=== PATIENT | female | born 1990 | race Asian ===

== ENCOUNTER 2021-04-01 19:01 | Emergency (ER) | payer MEDICAID ==
[~2021-04-01] VITALS: Ht 152.4 cm; Wt 89.0 kg
[~2021-04-01 19:01] MED LIST: AMPH30TA3 PO; SERT25TA PO
--- NOTE | 2021-04-01 20:06 | NUR ---
patient reports flying to [place] from [place] where she was hospitalized for vaginal bleeding and vomiting and later found naked in a ditch and hospitalized again
[2021-04-01] MEDS ORDERED: LIDOcaine 1% W/epiNEPHrine 1:200,000 10ml vial IJ ONE (20:20)
--- NOTE | 2021-04-01 20:33 | NUR ---
dr lyon in room and lanced left armpit abcess and left labia abcess: white prurlent moderate from left armpit and copious white material from left labia: patient cleaned left armpit and labial area with chorhexidine wipes
--- NOTE | 2021-04-01 20:52 | NUR ---
PATIENT SEEN AND TREATED FOR RASH AND ABCESS. KD VERBALIZED DISCHARGE PLAN. ASHLEYN WILL USE CLARITIN DAILYWITH BENADRYL NEEDED FOR HIVES, RASH, AND ITCHING. PATIENT WILL CLEAN AND KEEP DRY AND CLEAN LEFT ARMPIT AND LEFT LABIA. PATIENT VERBALIZED THAT SHE WILL USE A PAD AND PROVIDED A PAD TO WEAR HOME. PATIENT WILL FOLLOW UP WITH THE [facility]AT[facility]NA THOMAS. PATIENT AMBUALTED OUT OF ER WNL
[2021-04-01 21:12] VITALS: BP 125/69
== END 2021-04-01 20:57 | disposition home or self-care (01) ==
LOC: ER 19:02
DX: L02.412 Cutaneous abscess of left axilla (principal); N76.4 Abscess of vulva; R21 Rash and other nonspecific skin eruption; R50.9 Fever, unspecified; R05 Cough; R11.2 Nausea with vomiting, unspecified; R19.7 Diarrhea, unspecified; R09.89 Other specified symptoms and signs involving the circulatory and respiratory systems; F41.9 Anxiety disorder, unspecified; F32.9 Major depressive disorder, single episode, unspecified; F17.200 Nicotine dependence, unspecified, uncomplicated; Z87.01 Personal history of pneumonia (recurrent); Z79.899 Other long term (current) drug therapy
CPT/HCPCS: 10060; 10061; 56405; 99284

== ENCOUNTER 2021-06-25 14:03 | Emergency (ER) | payer MEDICAID ==
[~2021-06-25] VITALS: Ht 152.4 cm; Wt 214.0 kg
[2021-06-25 14:20] VITALS: BP 127/80
[2021-06-25] MEDS ORDERED: acetaminophen 325mg tablet PO ONE (15:20)
[2021-06-25] MEDS ORDERED: ONDA4TAB6 PO (15:53)
[2021-06-25] MEDS ORDERED: ACET-1025 PO (15:53)
[2021-06-25] MEDS ORDERED: ALBU8HFA PO (15:53)
[2021-06-25] MEDS ORDERED: BENZ-16 PO (15:53)
== END 2021-06-25 18:43 | disposition home or self-care (01) ==
LOC: ER 14:03
DX: U07.1 COVID-19 (principal); Z87.01 Personal history of pneumonia (recurrent); Z79.899 Other long term (current) drug therapy
CPT/HCPCS: 71045; 99283

== ENCOUNTER 2021-06-30 12:06 | Emergency (ER) | payer MEDICAID ==
[~2021-06-30] VITALS: Ht 152.4 cm; Wt 97.3 kg
[~2021-06-30 12:06] MED LIST changes: +ACET-1025 PO; +ALBU8HFA PO; +BENZ-16 PO; +ONDA4TAB6 PO
[2021-06-30 13:01] VITALS: BP 127/92
--- NOTE | 2021-06-30 15:03 | NUR ---
TC TO [facility] AT [facility]
== END 2021-06-30 15:04 | disposition home or self-care (01) ==
LOC: ER 12:07
DX: U07.1 COVID-19 (principal); R05 Cough; R19.7 Diarrhea, unspecified; R11.0 Nausea; F41.9 Anxiety disorder, unspecified; F32.9 Major depressive disorder, single episode, unspecified; Z87.01 Personal history of pneumonia (recurrent); Z79.899 Other long term (current) drug therapy
CPT/HCPCS: 71045; 99283

== ENCOUNTER 2021-11-22 08:40 | Emergency (ER) | payer MEDICAID ==
[~2021-11-22] VITALS: Ht 157.5 cm; Wt 111.0 kg
[~2021-11-22 08:40] MED LIST changes: -ACET-1025 PO; -ALBU8HFA PO; -BENZ-16 PO
[2021-11-22 08:45] VITALS: BP 121/80
== END 2021-11-22 11:34 | disposition home or self-care (01) ==
LOC: ER 08:41
DX: J06.9 Acute upper respiratory infection, unspecified (principal); Z20.822 Contact with and (suspected) exposure to COVID-19; R05.9 Cough, unspecified; J02.9 Acute pharyngitis, unspecified; R06.02 Shortness of breath; F41.9 Anxiety disorder, unspecified; F32.9 Major depressive disorder, single episode, unspecified; F17.200 Nicotine dependence, unspecified, uncomplicated; Z87.01 Personal history of pneumonia (recurrent); Z79.899 Other long term (current) drug therapy
CPT/HCPCS: 71045; 87635; 99284; C9803

== ENCOUNTER 2022-02-27 08:18 | Emergency (ER) | payer MEDICAID ==
[~2022-02-27] VITALS: Ht 152.4 cm; Wt 113.6 kg
[2022-02-27 08:33] VITALS: BP 130/82
[2022-02-27] MEDS ORDERED: LIDOcaine 1% 30ml preserv. free vial IJ STA (09:37)
--- NOTE | 2022-02-27 09:45 | NUR ---
TANVI Oliver at beside to give a digital block of toe.
--- NOTE | 2022-02-27 10:05 | NUR ---
Open wound on distal 2nd toe of L foot was irragated with 400ml of NS.
[2022-02-27] MEDS ORDERED: ibuprofen tablet 400 MG TABLET PO ONE (10:10)
[2022-02-27] MEDS ORDERED: acetaminophen 325mg tablet PO ONE (10:10)
[2022-02-27] MEDS ORDERED: CEPH500C2 PO (10:17)
[2022-02-27] MEDS ORDERED: LIDOcaine 1% W/epiNEPHrine 1:100,000 20ml vial SQ ONE (10:25)
[2022-02-27] MEDS ORDERED: LIDOcaine 1% W/epiNEPHrine 1:100,000 20ml vial ONE (10:29)
== END 2022-02-27 10:46 | disposition home or self-care (01) ==
LOC: ER 08:18
DX: S90.415A Abrasion, left lesser toe(s), initial encounter (principal); M79.675 Pain in left toe(s); Z87.01 Personal history of pneumonia (recurrent); Z79.2 Long term (current) use of antibiotics; Z79.899 Other long term (current) drug therapy; W20.8XXA Other cause of strike by thrown, projected or falling object, initial encounter; Y93.89 Activity, other specified; Y92.89 Other specified places as the place of occurrence of the external cause; Y99.8 Other external cause status
CPT/HCPCS: 64450; 73630; 99284; J3490; 99283

== ENCOUNTER 2022-05-26 08:51 | Emergency (ER) | payer MEDICAID ==
[~2022-05-26] VITALS: Ht 152.4 cm; Wt 110.5 kg
[2022-05-26] MEDS ORDERED: ondansetron/PF 4mg/2ml inj IV ONE (10:35)
[2022-05-26] MEDS ORDERED: normal saline 1000ml 1,000 ML IV ONE (10:35)
[2022-05-26 11:13] LABS: BASOPHILS % (AUTO) 0.5 % (0-1); EOSINOPHILS # (AUTO) 0.1 X10'3 (0-0.9); EOSINOPHILS % (AUTO) 1.6 % (0-6); HEMATOCRIT 35.7 % (35.0-45.0); HEMOGLOBIN 11.7 g/dl (12.0-16.0); LYMPHOCYTES # (AUTO) 2.3 X10'3 (1.1-4.8); LYMPHOCYTES % (AUTO) 25.4 % (21-51); MEAN CORPUSCULAR HEMOGLOBIN 30.5 PG (27.0-31.0); MEAN CORPUSCULAR HGB CONC 32.7 g/dL (33.0-36.5); MEAN CORPUSCULAR VOLUME 93.4 FL (78-98); MEAN PLATELET VOLUME 8.4 FL (7.4-10.4); MONOCYTES # (AUTO) 0.6 X10'3 (0-0.9); MONOCYTES % (AUTO) 7.1 % (2-12); NEUTROPHILS # (AUTO) 5.9 X10'3 (1.8-7.7); NEUTROPHILS % (AUTO) 65.4 % (42-75); PLATELET COUNT 341 X10'3 (140-440); RED BLOOD COUNT 3.82 X10'6 (4.20-5.60); RED CELL DISTRIBUTION WIDTH 13.4 % (11.5-14.5)
[2022-05-26 11:17] LABS: ALANINE AMINOTRANSFERASE 16 U/L (12-78); ALBUMIN 3.6 G/DL (3.4-5.0); ALBUMIN/GLOBULIN RATIO 0.9 (1.1-1.5); ALKALINE PHOSPHATASE 48 IU/L (46-116); ANION GAP 10 (8-16); ASPARTATE AMINO TRANSFERASE 12 U/L (10-37); BILIRUBIN,TOTAL 0.4 MG/DL (0.1-1.0); BLOOD UREA NITROGEN 8 MG/DL (7-18); BUN/CREATININE RATIO 13.6 (6.6-38.0); CALCIUM 8.7 MG/DL (8.5-10.1); CHLORIDE 106 MMOL/L (99-107); CREATININE 0.59 MG/DL (0.40-0.90); GLUCOSE 87 MG/DL (70-104); MAGNESIUM 1.8 MG/DL (1.5-2.4); SODIUM 139 MMOL/L (135-145); TOTAL CARBON DIOXIDE 22.9 MMOL/L (24-32); TOTAL PROTEIN 7.8 G/DL (6.4-8.2); eGFR > 90 ML/MIN
[2022-05-26] MEDS ORDERED: ketorolac trometh. 30mg/ml inj. IV ONE (12:55)
[2022-05-26] MEDS ORDERED: diphenhydrAMINE 50 mg/ml inj IV ONE (12:55)
[2022-05-26] MEDS ORDERED: diphenhydrAMINE 50 mg/ml inj ONE (13:07)
[2022-05-26] MEDS ORDERED: ONDA4TAB12 PO (14:15)
[2022-05-26 14:19] LABS: CLARITY,URINE SLIGHTLY CLOUDY (Clear); COLOR,URINE RED (Yellow)
[2022-05-26 14:22] LABS: UA COLLECTION TYPE CLN CATCH MIDSTREAM
[2022-05-26 14:27] LABS: URINE HCG NEGATIVE (NEG)
[2022-05-26 14:34] LABS: SQUAMOUS EPITHELIAL CELL,UR MODERATE /LPF (FEW)
[2022-05-26 14:37] LABS: RBC,URINE TNTC /HPF (0-2); WBC,URINE 30-50 /HPF (0-4)
[2022-05-26 14:38] LABS: BACTERIA,URINE 1+ /HPF (Neg)
[2022-05-26] MEDS ORDERED: CEPH-585 PO (15:07)
[2022-05-26] MEDS ORDERED: cephalexin 250mg capsule PO ONE (15:10)
[2022-05-26 15:17] VITALS: BP 128/65
== END 2022-05-26 15:18 | disposition home or self-care (01) ==
LOC: ER 08:51
DX: K52.9 Noninfective gastroenteritis and colitis, unspecified (principal); Z20.822 Contact with and (suspected) exposure to COVID-19; N39.0 Urinary tract infection, site not specified; R51.9 Headache, unspecified; R11.2 Nausea with vomiting, unspecified; Z87.01 Personal history of pneumonia (recurrent); Z79.2 Long term (current) use of antibiotics; Z79.899 Other long term (current) drug therapy
CPT/HCPCS: 36415; 80053; 81001; 81025; 83735; 85025; 87088; 87635; 96361; 96374; 96375; 99284; C9803; J1200; J1885; J2405; J7030

== ENCOUNTER 2023-07-08 11:09 | Emergency (ER) | payer MEDICAID ==
[~2023-07-08] VITALS: Ht 167.6 cm; Wt 117.6 kg
[~2023-07-08 11:09] MED LIST changes: +LISD20CA PO; +METF-436 PO; +ONDA4TAB12 PO
[2023-07-08 11:11] VITALS: BP 135/91; PULSE 97; O2SAT 97
[2023-07-08] MEDS ORDERED: ketorolac trometh inj. 60 MG/2 ML VIAL IM ONE (13:05)
[2023-07-08] MEDS ORDERED: orphenadrine citrate 60mg/2ml inj. IM ONE (13:05)
[2023-07-08] MEDS ORDERED: PRED20TA PO (13:09)
[2023-07-08] MEDS ORDERED: CYCL-1 PO (13:09)
[2023-07-08] MEDS ORDERED: IBUP-1984 PO (13:09)
[2023-07-08 13:13] VITALS: RESP 15
[2023-07-08 13:33] VITALS: TEMP 98.3
--- NOTE | 2023-07-08 13:36 | NUR ---
LUMBAR BRACE NOT AVAILABLE IN PT SIZE TOLD BY JOY GASTELUM ,NOTIFIED THE PA AND ALSO THE PT ,OKAY TO D/C WITHOUT BRACE.
== END 2023-07-08 13:37 | disposition home or self-care (01) ==
LOC: ER 11:09
DX: S39.012A Strain of muscle, fascia and tendon of lower back, initial encounter (principal); F41.9 Anxiety disorder, unspecified; F32.A Depression, unspecified; Z79.899 Other long term (current) drug therapy; X50.0XXA Overexertion from strenuous movement or load, initial encounter; Y93.89 Activity, other specified; Y92.89 Other specified places as the place of occurrence of the external cause; Y99.8 Other external cause status
CPT/HCPCS: 96372; 99284; J1885; J2360

== ENCOUNTER 2024-01-08 07:00 | Emergency (ER) | payer MEDICAID ==
[~2024-01-08] VITALS: Ht 152.4 cm; Wt 109.6 kg
[~2024-01-08 07:00] MED LIST changes: +CYCL-1 PO
[2024-01-08] MEDS: albuterol 2.5 MG/3 ML nebule NEB ONE (09:10)
[2024-01-08 09:11] VITALS: PULSE 87; RESP 22; O2SAT 98
[2024-01-08 09:22] VITALS: PULSE 91; RESP 24; O2SAT 95
[2024-01-08] MEDS: HYDROcodone/acetaminophen 5mg/325mg tablet PO ONE (09:30)
[2024-01-08] MEDS: azithromycin 250mg tablet PO ONE (09:37)
[2024-01-08] MEDS: ketorolac trometh. 30mg/ml inj. IV ONE (09:38)
[2024-01-08] MEDS: normal saline 1000ML IV soln IVB ONE (09:39)
[2024-01-08] MEDS: methylPREDNISolone sod succ 125mg/2ml vial IV ONE (09:39)
[2024-01-08] MEDS: CefTRIAXone 2gm/D5W 50ml BAG 50 ML IV ONE (09:44)
[2024-01-08 09:52] LABS: BASOPHILS % (AUTO) 0.7 % (0-1); EOSINOPHILS # (AUTO) 0.1 X10'3 (0-0.9); EOSINOPHILS % (AUTO) 1.6 % (0-6); HEMATOCRIT 35.6 % (35.0-45.0); HEMOGLOBIN 11.7 g/dl (12.0-16.0); LYMPHOCYTES # (AUTO) 1.8 X10'3 (1.1-4.8); LYMPHOCYTES % (AUTO) 24.2 % (21-51); MEAN CORPUSCULAR HEMOGLOBIN 29.8 PG (27.0-31.0); MEAN CORPUSCULAR HGB CONC 32.9 g/dL (33.0-36.5); MEAN CORPUSCULAR VOLUME 90.3 FL (78-98); MEAN PLATELET VOLUME 8.7 FL (7.4-10.4); MONOCYTES # (AUTO) 0.6 X10'3 (0-0.9); NEUTROPHILS # (AUTO) 4.8 X10'3 (1.8-7.7); NEUTROPHILS % (AUTO) 65.5 % (42-75); PLATELET COUNT 351 X10'3 (140-440); RED BLOOD COUNT 3.94 X10'6 (4.20-5.60); RED CELL DISTRIBUTION WIDTH 13.9 % (11.5-14.5); WHITE BLOOD COUNT 7.3 X10'3 (4.5-11.0)
[2024-01-08 10:16] LABS: ALBUMIN 3.5 G/DL (3.4-5.0); ANION GAP 12 (8-16); BLOOD UREA NITROGEN 7 MG/DL (7-18); BUN/CREATININE RATIO 11.7 (10.0-20.0); CALCIUM 8.9 MG/DL (8.5-10.1); CHLORIDE 104 MMOL/L (99-107); GLUCOSE 83 MG/DL (70-104); PRO BRAIN NATRIURETIC PEPTIDE < 30 PG/ML (0-125); SODIUM 138 MMOL/L (135-145); TOTAL CARBON DIOXIDE 22.4 MMOL/L (24-32); eCRCL 98 ML/MIN; eGFR > 90 ML/MIN
[2024-01-08 10:19] LABS: D-DIMER 0.56 MG/L FEU (0-0.50)
[2024-01-08] MEDS: LORazepam 2 mg/ml vial IV ONE (10:27)
[2024-01-08 13:39] LABS: HCG SERUM QL NEGATIVE
[2024-01-08] MEDS ORDERED: IBUP-1985 PO (15:00)
[2024-01-08] MEDS ORDERED: PRED20TA PO (15:00)
[2024-01-08] MEDS ORDERED: ALBU8HFA INH (15:00)
[2024-01-08] MEDS ORDERED: AMOX-580 PO (15:00)
[2024-01-08 15:10] VITALS: BP 130/78; PULSE 89; RESP 18; TEMP 98.5; O2SAT 99
== END 2024-01-08 15:12 | disposition home or self-care (01) ==
LOC: ER 07:00
DX: S29.011A Strain of muscle and tendon of front wall of thorax, initial encounter (principal); R91.1 Solitary pulmonary nodule; R05.9 Cough, unspecified; Z79.899 Other long term (current) drug therapy; X58.XXXA Exposure to other specified factors, initial encounter; Y93.89 Activity, other specified; Y92.89 Other specified places as the place of occurrence of the external cause; Y99.8 Other external cause status
CPT/HCPCS: 36415; 71045; 71275; 80048; 83605; 83880; 84484; 84703; 85025; 85379; 87040; 93005; 94640; 96365; 96375; 99285; J0696; J1885; J2060; J2930; J7030; 94760

== ENCOUNTER 2024-08-09 09:32 | Emergency (ER) | payer MEDICAID ==
[~2024-08-09] VITALS: Ht 152.4 cm; Wt 92.6 kg
[~2024-08-09 09:32] MED LIST changes: +CLIN-97 PO; +IBUP-1985 PO; +IBUP-862 PO; +ONDA-243 PO; -ONDA4TAB12 PO
[2024-08-09 09:43] VITALS: TEMP 97.1
[2024-08-09] MEDS ORDERED: ondansetron/PF 4mg/2ml inj IM ONE (10:30)
[2024-08-09 10:54] LABS: BILIRUBIN,URINE NEGATIVE (Neg); CLARITY,URINE CLEAR (Clear); COLOR,URINE YELLOW (Yellow); GLUCOSE, URINE NEGATIVE (Neg); KETONES,URINE 40 mg/dl (Neg); LEUKOCYTE ESTERASE ,URINE NEGATIVE (Neg); NITRITES, URINE NEGATIVE (Neg); OCCULT BLOOD,URINE SMALL (Neg); PROTEIN,URINE NEGATIVE (Neg); UROBILINOGEN,URINE 0.2 E.U/dL (0.2-1.0)
[2024-08-09 10:57] LABS: BASOPHILS % (AUTO) 0.4 % (0-1); EOSINOPHILS % (AUTO) 0.7 % (0-6); HEMATOCRIT 36.5 % (35.0-45.0); HEMOGLOBIN 12.1 g/dl (12.0-16.0); LYMPHOCYTES # (AUTO) 1.9 X10'3 (1.1-4.8); LYMPHOCYTES % (AUTO) 29.6 % (21-51); MEAN CORPUSCULAR HEMOGLOBIN 32.1 PG (27.0-31.0); MEAN CORPUSCULAR HGB CONC 33.3 g/dL (33.0-36.5); MEAN CORPUSCULAR VOLUME 96.5 FL (78-98); MEAN PLATELET VOLUME 9.1 FL (7.4-10.4); MONOCYTES # (AUTO) 0.5 X10'3 (0-0.9); MONOCYTES % (AUTO) 7.5 % (2-12); NEUTROPHILS % (AUTO) 61.8 % (42-75); PLATELET COUNT 312 X10'3 (140-440); RED BLOOD COUNT 3.78 X10'6 (4.20-5.60); RED CELL DISTRIBUTION WIDTH 13.5 % (11.5-14.5); WHITE BLOOD COUNT 6.5 X10'3 (4.5-11.0)
[2024-08-09 10:58] LABS: UA COLLECTION TYPE CLN CATCH MIDSTREAM
[2024-08-09 10:59] LABS: BACTERIA,URINE FEW /HPF (Neg); RBC,URINE 0-2 /HPF (0-2); SQUAMOUS EPITHELIAL CELL,UR MODERATE /LPF (FEW); WBC,URINE 0-4 /HPF (0-4)
[2024-08-09 11:19] LABS: ALANINE AMINOTRANSFERASE 20 U/L (12-78); ALBUMIN 3.9 G/DL (3.4-5.0); ALBUMIN/GLOBULIN RATIO 0.9 (1.1-1.5); ALKALINE PHOSPHATASE 40 IU/L (46-116); ANION GAP 12 (8-16); ASPARTATE AMINO TRANSFERASE 20 U/L (10-37); BILIRUBIN,TOTAL 0.4 MG/DL (0.1-1.0); BLOOD UREA NITROGEN 5 MG/DL (7-18); BUN/CREATININE RATIO 7.5 (10.0-20.0); CALCIUM 9.1 MG/DL (8.5-10.1); CHLORIDE 101 MMOL/L (99-107); CREATININE 0.67 MG/DL (0.40-0.90); GLUCOSE 79 MG/DL (70-104); POTASSIUM 3.1 MMOL/L (3.5-5.1); SODIUM 135 MMOL/L (135-145); TOTAL CARBON DIOXIDE 22.3 MMOL/L (24-32); TOTAL PROTEIN 8.1 G/DL (6.4-8.2); eCRCL 87 ML/MIN; eGFR > 90 ML/MIN
[2024-08-09] MEDS: normal saline 1000ml 1,000 ML IV ONE (11:19)
[2024-08-09] MEDS: ondansetron/PF 4mg/2ml inj IV ONE (11:22)
[2024-08-09 11:58] LABS: BETA HCG,QUANTITATIVE 12288 mIU/ml
[2024-08-09 12:36] VITALS: BP 136/87; PULSE 86; RESP 15; O2SAT 100
== END 2024-08-09 12:38 | disposition home or self-care (01) ==
LOC: ER 09:32
DX: O21.0 Mild hyperemesis gravidarum (principal); F41.9 Anxiety disorder, unspecified; F32.A Depression, unspecified; F17.210 Nicotine dependence, cigarettes, uncomplicated; Z3A.01 Less than 8 weeks gestation of pregnancy; Z79.899 Other long term (current) drug therapy; Z79.2 Long term (current) use of antibiotics
CPT/HCPCS: 36415; 80053; 81001; 84702; 85025; 96361; 96374; 99283; J2405; J7030

== ENCOUNTER 2024-08-12 09:50 | Emergency (ER) | payer MEDICAID ==
[~2024-08-12] VITALS: Ht 152.4 cm; Wt 92.9 kg
[2024-08-12 09:55] VITALS: BP 135/81; PULSE 81; RESP 16; TEMP 97.5; O2SAT 100
== END 2024-08-12 13:03 | disposition home or self-care (01) ==
LOC: ER 09:50
DX: O26.851 Spotting complicating pregnancy, first trimester (principal); F41.9 Anxiety disorder, unspecified; F32.A Depression, unspecified; Z79.2 Long term (current) use of antibiotics; Z79.1 Long term (current) use of non-steroidal anti-inflammatories (NSAID); Z79.84 Long term (current) use of oral hypoglycemic drugs; Z79.899 Other long term (current) drug therapy; Z3A.01 Less than 8 weeks gestation of pregnancy
CPT/HCPCS: 36415; 84702; 99283

== ENCOUNTER 2025-07-28 19:04 | Emergency (ER) | payer MEDICAID ==
[~2025-07-28] VITALS: Ht 152.4 cm; Wt 122.6 kg
[~2025-07-28 19:04] MED LIST changes: +CLIN-224 PO; -CLIN-97 PO; -IBUP-1985 PO; +IBUP600T52 PO
[2025-07-28 19:07] VITALS: BP 150/98
[2025-07-28 19:59] LABS: INFLUENZA TYPE A ANTIGEN RAPID NEGATIVE (Negative); INFLUENZA TYPE B ANTIGEN RAPID NEGATIVE (Negative)
--- NOTE | 2025-07-28 20:06 | RADIOLOGY REPORT ---
CHEST RADIOGRAPH Indication: cough Technique: Single frontal view of the chest was obtained Comparison: DI CHEST,SINGLE VIEW on DOS: 01/08/24, CHEST,SINGLE VIEW on DOS: 11/22/21, CHEST,SINGLE VIEW on DOS: 06/30/21 FINDINGS: Lines and Tubes: None Lungs: No focal consolidation. Pleura: No effusion. No pneumothorax. Cardiomediastinal contours: Unremarkable Bones: No acute osseous abnormality. IMPRESSION: No acute cardiopulmonary disease.
--- NOTE | 2025-07-28 20:45 | Physician Documentation ---
History of Present Illness ~ Chief Complaint: Cold, cough & congestion Stated Complaint: COUGH Time Seen by MD: 19:28 Primary Medical Doctor: N/A Mode of Arrival: POV HPI 35-year-old female had dry cough sinus congestion the last three days. Did not states she also has nausea and diarrhea Day of Onset: Jul 28, 2025 Medication Reconciliation Allergies: Coded Allergies: No Known Allergies (Unverified , 07/28/25) Scheduled Clindamycin HCL* (Clindamycin HCL*), 1 CAP PO Q6H Cyclobenzaprine* (Cyclobenzaprine*), 1 TAB PO Q8H Dextroamphetamine/Amphetamine (Adderall 30 mg Tablet), 1 TAB PO BID Ibuprofen (Ibuprofen), 1 TAB PO Q8H Ibuprofen (Ibu), 1 TAB PO Q6H Lisdexamfetamine Dimesylate (Vyvanse), 1 CAP PO QAM Metformin Hcl (Metformin Hcl), 1 TAB PO Q12H Ondansetron Hcl (Zofran), 1 TAB PO Q6H Sertraline Hcl* (Zoloft*), 1 TABLET PO DAILY Scheduled PRN ONDANSETRON ODT 4mg tablet (Ondansetron Odt), 1 TABLET PO Q6H PRN for nausea/vomiting Past Medical History Past Medical History: *ENT*, Pneumonia, *PSYCH*, Anxiety, Depression Past Surgical History: noncontributory Alcohol Use: None Drug Use: none Lives In: Home Review of Systems All Other Systems at this time: Reviewed and Negative ROS As stated above in the HPI, otherwise all systems are reviewed and negative. Physical Exam Vital Signs: Temperature: 98.1, Source: Oral, Heart Rate: 88, Respiratory Rate: 18, BP: 150/98, Pulse Oximetry: 99, Weight: 122.600 Oxygen Flow Rate: 0 Physical Exam General: Alert, no apparent distress. HEENT: PERRL, EOMI, no injection, moist mucous membranes. Neck: Full range of motion. Respiratory: Lungs clear, no respiratory distress. Chest: No accessory muscle use. Cardiovascular: Regular rate and rhythm, no murmurs. Gastrointestinal: Soft, nontender, nondistended. Bowels sounds present. Extremities: Normal range of motion, no deformity. Neurologic: Oriented x4. Psychiatric: Normal mood and affect. Skin: Normal color, warm and dry. No edema, no ecchymosis. Progress Results/Orders Results/Orders Orders - JAX MARTINEZ NP Chest,Single View (07/28/25 19:30) Completed Orders - JAX MARTINEZ NP Chest,Single View (07/28/25 19:30) Vital Signs 07/28/25 07/28/25 07/28/25 19:07 20:22 20:31 Temp 98.1 Pulse 92 88 Resp 18 18 18 B/P (MAP) 150/98 Pulse Ox 98 99 O2 Flow Rate 0 Laboratory Tests Test 07/28/25 19:14 Influenza Type A Antigen Negative Influenza Type B Antigen Negative SARS-CoV-2 Antigen (Rapid) Negative Medical Decision Making Findings Negative for COVID and flu. Patient likely has a an upper respiratory virus. He is in no acute distress. Departure Disposition: HOME / SELF CARE / HOMELESS Impression: Primary Impression: Acute respiratory infection Discharge Instructions: Upper Respiratory Infection, Adult Additional Instructions: Rest take ibuprofen in increase fluid intake Departure Forms: Excuse form Work or School Excused From: Work Excuse beginning now through the following date: Jul 30, 2025 May Return but still avoid physical Activity from now until: Jul 30, 2025 May Return to full physical activity as of: Jul 30, 2025 Referrals: NO PRIMARY CARE PROVIDER (PCP) Education Educated: Patient Educated regarding: diagnosis Signature Scribe Signature: t Attestation: Scribed for Jax Martinez [employer] by Jax Gardner NP . 07/28/25 20:45 JAX MARTINEZ BOBBIN PRESSER Jul 28, 2025 20:45
[2025-07-28 20:50] VITALS: PULSE 88; RESP 16; TEMP 98.1; O2SAT 96
== END 2025-07-28 20:55 | disposition home or self-care (01) ==
LOC: ER 19:04
DX: J22 Unspecified acute lower respiratory infection (principal); F41.9 Anxiety disorder, unspecified; F32.A Depression, unspecified; Z20.822 Contact with and (suspected) exposure to COVID-19
CPT/HCPCS: 36415; 71045; 87804; 87811; 99284